=== PATIENT | male | born 1965 | race Caucasian/White ===

== ENCOUNTER → 2017-05-23 | Outpatient (CLI) | payer OTHER | LOC: M RAD 11:49 | DX: I82.411 Acute embolism and thrombosis of right femoral vein (principal); I82.431 Acute embolism and thrombosis of right popliteal vein | CPT/HCPCS: 93970 ==

== ENCOUNTER → 2017-12-06 | Outpatient (CLI) | payer OTHER | LOC: M RAD 12:18 | DX: I26.09 Other pulmonary embolism with acute cor pulmonale (principal); I82.531 Chronic embolism and thrombosis of right popliteal vein | CPT/HCPCS: 93971 ==

== ENCOUNTER → 2018-09-17 | Outpatient (CLI) | payer OTHER ==
--- NOTE | 2018-09-17 12:01 | REP ---
RIGHT LOWER EXTREMITY DUPLEX DOPPLER VENOUS ULTRASOUND: Real-time compression and duplex Doppler interrogation of right lower extremity deep venous system is performed. No prominence is seen in the right common femoral vein. There is again chronic thrombus to a mild extent in the peripheral aspect of the femoral vein extending into the popliteal vein. This appears to be decreased compared to the prior study of 12/06/2017. 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 This appears mildly improved since 12/06/2017 exam. Electronically Signed by Esau Lance MD 09/17/2018 05:32 P
== END ==
LOC: M RAD 10:39
PROVIDERS: ATTEND Surgery Vascular Surgery
DX: I82.511 Chronic embolism and thrombosis of right femoral vein (principal); I82.531 Chronic embolism and thrombosis of right popliteal vein